=== PATIENT | male | born 1975 | race Two or more races ===

== ENCOUNTER 2020-12-28 20:40 | Emergency (ER) | payer SELFPAY ==
[2020-12-28 21:41] LABS: BASOPHIL 1.1 % (0-2); EOSINOPHIL 2.1 % (0-5); HCT 44.7 % (42.0-52.0); HGB 14.6 g/dl (13.2-18.0); LYMPHOCYTE 37.5 % (15-48); MCHC 32.7 g/dL (32.0-36.0); MONOCYTE 8.5 % (0-12); MPV 9.1 fL (6.0-9.5); NEUTROPHIL 50.2 % (41-80); NRBC 0; PLT 258 K/uL (150-400); RBC 4.86 M/uL (4.70-6.00); RDW 13.2 % (11.5-14.0); WBC 8.1 K/uL (4.0-10.5)
[2020-12-28 21:55] LABS: INR 1.01 (0.9-1.2); PROTHROMBIN TIME 12.7 SECONDS (11.8-13.4)
[2020-12-28 21:56] LABS: PTT 27.7 SECONDS (24.4-34.7)
[2020-12-28 22:01] LABS: BILIRUBIN - TOTAL 0.2 mg/dL (0.2-1.0); BUN/CREAT RATIO (CALC) 12.5 RATIO; CREATININE 1.76 mg/dL (0.67-1.17); GLOBULIN (CALCULATION) 3.3 g/dL; TOTAL PROTEIN 7.3 g/dL (6.4-8.2)
[2020-12-28 23:38] LABS: PRO-BNP 20 pg/mL (<125)
== END 2020-12-29 03:12 | disposition home or self-care (01) ==
LOC: FER 20:40
PROVIDERS: Emergency Medicine
DX: R07.89 Other chest pain (principal); R10.11 Right upper quadrant pain; I10 Essential (primary) hypertension; I25.10 Atherosclerotic heart disease of native coronary artery without angina pectoris; F17.210 Nicotine dependence, cigarettes, uncomplicated; Z79.82 Long term (current) use of aspirin; Z79.899 Other long term (current) drug therapy; Z91.041 Radiographic dye allergy status; Z20.822 Contact with and (suspected) exposure to COVID-19
CPT/HCPCS: 36415; 71045; 80053; 83880; 84484; 85025; 85610; 85730; 93005; J2405; J7030; Q9967; U0002

== ENCOUNTER 2021-03-12 09:52 | Emergency (ER) | payer OTHER ==
[2021-03-12 11:31] LABS: BASOPHIL 0.3 % (0-2); EOSINOPHIL 0.3 % (0-5); HCT 48.9 % (42.0-52.0); HGB 16.1 g/dl (13.2-18.0); LYMPHOCYTE 18.7 % (15-48); MCH 30.1 pg (25.0-31.0); MCHC 32.9 g/dL (32.0-36.0); MCV 91.6 fL (78.0-100.0); MONOCYTE 6.1 % (0-12); MPV 9.4 fL (6.0-9.5); NEUTROPHIL 73.7 % (41-80); NRBC 0; PLT 287 K/uL (150-400); RBC 5.34 M/uL (4.70-6.00); RDW 13.2 % (11.5-14.0); WBC 11.6 K/uL (4.0-10.5)
[2021-03-12 11:38] LABS: BILIRUBIN - TOTAL 0.4 mg/dL (0.2-1.0); BUN/CREAT RATIO (CALC) 19.8 RATIO; CREATININE 0.86 mg/dL (0.67-1.17); GLOBULIN (CALCULATION) 3.9 g/dL; POTASSIUM 4.2 mmol/L (3.5-5.1); TOTAL PROTEIN 7.9 g/dL (6.4-8.2)
[2021-03-12] MEDS ORDERED: NORCO 5-325 TA1 EACH PO (13:03)
[2021-03-12] MEDS ORDERED: CIPRO500 MG PO (13:03)
[2021-03-12] MEDS ORDERED: ONDANSETRON ODT4 MG PO (13:03)
[2021-03-12] MEDS ORDERED: METRONIDAZOLE500 MG PO (13:03)
[2021-03-12] MEDS ORDERED: IMODIUM2 MG PO (17:13)
--- NOTE | 2021-03-14 14:14 | NUR ---
On 03/14/21 Mr. Jose Mitchell presented to the hospital requesting to see a case management social worker. He requested assistance in getting a colonoscopy and assistance in paying for his outstanding hospital bill from ED visits. Mr. Jose Mitchell does not have a surgeon nor PCP. Ainsley Romo was attempting to assist patient in applying for a Medicaid product. It was learned that he has Medicaid [employer], Appointsments were scheduled with Drs. Jensen and Ar for Mar 21. Patient was educated to use his Medicaid card to pay for prescriptions.
== END 2021-03-12 18:10 | disposition home or self-care (01) ==
LOC: FER 09:52
PROVIDERS: Internal Medicine
DX: K52.9 Noninfective gastroenteritis and colitis, unspecified (principal); I10 Essential (primary) hypertension; Z91.041 Radiographic dye allergy status
CPT/HCPCS: 36415; 80053; 83690; 85025; J1170; J2405; J7030